=== PATIENT | female | born 1950 | race Caucasian/White ===

== ENCOUNTER → 2018-04-06 | Outpatient (REF) | END | disposition home or self-care (01) | DRG 951 | LOC: LAB 08:18 | PROVIDERS: ATTEND Internal Medicine | DX: Z00.00 Encounter for general adult medical examination without abnormal findings (principal) ==

== ENCOUNTER 2019-04-24 17:32 | Emergency (ER) | payer MEDICARE ==
[~2019-04-24] VITALS: Ht 165.1 cm; Wt 67.0 kg
[2019-04-24 19:52] VITALS: BP 125/66
[2019-04-24] MEDS ORDERED: MEDDOSEPAK PO (20:09)
[2019-04-24] MEDS ORDERED: FLEXERIL5 M1 PO (20:09)
== END 2019-04-24 20:20 | disposition home or self-care (01) ==
LOC: ED 17:32
DX: M54.5 Low back pain (principal); W18.2XXA Fall in (into) shower or empty bathtub, initial encounter; Y93.E1 Activity, personal bathing and showering

== ENCOUNTER 2022-10-15 18:28 | Emergency (ER) | payer MEDICARE ==
[~2022-10-15 18:28] MED LIST: FLEXERIL5 M1 PO; MEDDOSEPAK PO
[2022-10-16 02:13] VITALS: BP 00/00
[2022-10-16] MEDS ORDERED: ALPRAZOLAM0.5 M2 PO (09:49)
[2022-10-16] MEDS ORDERED: OXYCODONE10 M1 PO (11:47)
== END 2022-10-16 02:14 | disposition left against medical advice (07) ==
LOC: ED 18:28 → LWOBS 20:15
DX: Z53.21 Procedure and treatment not carried out due to patient leaving prior to being seen by health care provider (principal)

== ENCOUNTER 2022-10-16 09:20 | Emergency (ER) | payer MEDICARE ==
[2022-10-16] VITALS (9 sets, daily range): BP systolic 109–129; BP diastolic 43–56
[~2022-10-16] VITALS: Ht 165.1 cm; Wt 65.0 kg
[2022-10-16] MEDS ORDERED: ALPRAZOLAM0.5 M2 PO (09:49)
[2022-10-16] MEDS ORDERED: OXYCODONE10 M1 PO (11:47)
== END 2022-10-16 12:41 | disposition home or self-care (01) ==
LOC: ED 09:20
DX: M25.551 Pain in right hip (principal); M81.0 Age-related osteoporosis without current pathological fracture